=== PATIENT | male | born 1960 | race Caucasian/White ===

== ENCOUNTER 2016-07-22 11:00 | Inpatient (IN) | payer BC, OTHER ==
--- NOTE | 2016-07-22 11:24 | HP ---
SUPERVISING PHYSICIAN: Marvin Avendano MD CHIEF COMPLAINT: Persistent diarrhea and left sided abdominal pain. HISTORY OF PRESENT ILLNESS: Mr. Blair is a 55-year-old, male patient that was sent directly from the clinic for admission for persistent diarrhea having failed to respond to outpatient treatment. He was seen on Friday this past week for complaints of back pain with some nausea and some diarrhea. He notes that the diarrhea started approximately 9 days previously and had not resolved on any icko-dmq-ryhutyk treatment. He also notes he had lost approximately 9 pounds within the last 10 days. In the clinic on Friday, he was started on Cipro and Flagyl with concerns for diverticulitis with the patient having a past history of diverticulosis. Today in the clinic, he was still having a significant amount of diarrhea with some left sided lower quadrant pain, again. Laboratory studies were completed showing a mild leukocytosis with a white count of 12.1 without a notable left shift. However, he did have elevation in eosinophils. Stool studies were also done to include leukocytes that were negative. Occult blood was positive and cultures and Giardia studies pending. C. difficile toxin A and B were negative. Chemistries were within normal limits except for a mildly elevated creatinine of 1.8. Liver functions were within normal limits. Amylase and lipase were pending at time of admission. Given the patient had failed to have any significant improvement in the last 72 hours after being started on antibiotics and had over 10 days worth of continued symptoms to include diarrhea, the patient was sent for direct admission. He was admitted in stable condition to the Medical/Surgical Floor. PAST MEDICAL HISTORY: 1. Kidney stones. 2. Benign prostatic hypertrophy. 3. Type 2 diabetes mellitus on oral therapy. 4. Hypertension. 5. Chronic insomnia. 6. History of diverticulosis. PAST SURGICAL HISTORY: No major surgeries listed. HOME MEDICATIONS: 1. Metoprolol 25 mg ER 1 daily. 2. Crestor 5 mg tablet 1 daily. 3. Glucophage ER 500 mg tablet 2 tablets daily. 4. Flomax 0.4 mg twice daily. 5. Antibiotics started this past Friday including Cipro 500 mg and Flagyl 500 mg. 6. Ambien 10 mg 1 p.r.n. as needed for insomnia. 7. Aspirin. ALLERGIES: PENICILLINS. FAMILY HISTORY: Prostate cancer in father and uncle. SOCIAL HISTORY: The patient is retired from the [employer] industry, currently works as a rancher, self employed. He denies ever smoking tobacco. He does note that he drinks wine periodically. He denies any illicit drug use. He is and lives in [place]. REVIEW OF SYSTEMS: CONSTITUTIONAL: Denies any fatigue and fevers, but notes a 9 pound unintentional weight loss within the last 10 days. HEENT: Denies nasal congestion, cough, sore throat, headaches. CARDIOVASCULAR: Denies chest pain, orthopnea, or edema. RESPIRATORY: Denies recent cough, congestion. He does note some mild dyspnea with exertion. GASTROINTESTINAL: Positive as noted in history of present illness for persistent diarrhea for 10 days with a 9 pound weight loss with no report of hematochezia. He does have abdominal pain , more in the left lower quadrant. Denies any constipation. He has had some nausea and one episode of emesis. MUSCULOSKELETAL: Denies arthralgias, but does note bilateral back pain and has history of kidney stones. GENITOURINARY: Positive for gross hematuria with history of kidney stones, being followed by a urologist in [place]. NEUROLOGIC: Denies ataxia, headaches, changes in vision or syncopal episodes. PHYSICAL EXAMINATION: VITAL SIGNS: In the clinic, temperature 97.2. Blood pressure 120/72. Respirations 18. O2 saturation 98% on room air. Weight 95 kg. GENERAL: The patient appears to be in no distress. He is pleasant, alert. HEENT: Tympanic membranes clear bilaterally. Oropharynx is pink, mucous membranes are dry. There are no lesions. NECK: No jugular venous distention noted. CHEST: Lungs clear to auscultation bilaterally without any rhonchi, wheezes, or rales. CARDIOVASCULAR: Regular rate and rhythm without any appreciable murmurs, gallops, or rubs. ABDOMEN: Soft with hyperactive bowel sounds with some tenderness on palpation to the left sided both upper and lower quadrants, but no rebound tenderness. There is some mild discomfort on palpation over the epigastric region. EXTREMITIES: There is no cyanosis, clubbing or edema. NEUROLOGIC: The patient is alert and oriented times three. Cranial nerves II- XII are grossly intact. Facial features are symmetric. Extraocular movements are within normal limits. There is no nystagmus. There are no notable motor neurologic deficits. LABORATORY: Laboratory completed in the clinic. CBC showed white count slightly elevated at 12.1, hemoglobin 15.2, hematocrit 43.0, platelet count 196, 000, differential without left shift, however, eosinophils elevated at 15%. Chemistries with CMP showing sodium 142, potassium 4.4, chloride 105, CO2 22, BUN 19, creatinine 1.8, calcium 9.9. Liver functions within normal limits. Total bilirubin 0.5. Amylase and lipase were not completed. Urinalysis showed dipstick with 2+ ketones with 1+ protein and trace leukocyte esterase on dipstick. Microscopic revealed 1 to 3 WBCs, 3 to 5 RBCs with occasional epithelial, rare bacteria and trace mucus. Stool occult blood was reported as negative. Giardia antigen and O&P pending. MICROBIOLOGY: Stool leukocytes negative. Sputum culture pending. C. difficile toxin A and B negative for C. difficile antigen and negative for C. difficile toxin A and B. RADIOLOGY: CT of the abdomen with contrast per radiology interpretation noted a 4 mm calculus in the proximal third left ureter resulting in mild left sided hydronephrosis. Also of note was chronic diverticulosis without any evidence of diverticulitis. ASSESSMENT: 1. Persistent diarrhea with nausea, vomiting and left lower quadrant pain with the patient having CT evidence of diverticulosis without any evidence of diverticulitis - stool studies pending. 2. Moderate dehydration secondary to persistent diarrhea for the last 10 days and reported weight loss of 9 pounds. 3. Diverticulosis as evidenced by CT with a mild leukocytosis in patient having failed to respond to outpatient treatment plan for the last 72 hours started on Cipro and Flagyl. 4. Left sided hydronephrosis secondary to a 4 mm calculus in the proximal third of the left ureter. 5. History of hematuria secondary to renal calculi, followed by urology in Dr. [place] Esther Patel. 6. Hypertension. 7. Type 2 diabetes mellitus on oral therapy. 8. History of benign prostatic hypertrophy. 9. Insomnia. PLAN: The patient is directly admitted from the clinic having failed to respond to outpatient treatment plan for diverticulosis and persistent diarrhea with a 9 pound weight loss. The patient will be started on IV fluids, made NPO and provided Zofran for nausea and morphine as needed for pain control. Dr. Owens has been consulted for further management of the patient's clinical course. We will continue to do stool studies to include occult blood and C. difficiles for a total of 3. We will continue with antibiotic at this point with Rocephin and Flagyl and await stool culture reports. Anticipate length of stay to be 2 to 3 days. Until discharge we will continue to monitor the patient closely and treat appropriately. #[id number] [facility]
[2016-07-22] MEDS ORDERED: ONDANSETRON INJ 4 MG/2 ML VIAL IV PRN (11:46)
[2016-07-22] MEDS ORDERED: SODIUM CHLORIDE 0.9% (FLUSH) 10 ML SYG IV PRN (11:46)
[2016-07-22] MEDS ORDERED: DEXTROSE 50% 25 GM/50 ML SYG IV PRN (11:46)
[2016-07-22] MEDS ORDERED: GLUCAGON INJ 1 MG VIAL SUBCU PRN (11:46)
[2016-07-22] MEDS ORDERED: IV SET AND CAP CHANGE INJ INJ SCH (12:00)
[2016-07-22] MEDS ORDERED: metroNIDAZOLE IV PREMIX 500MG 100 ML IVPB ONE ×2 (12:21→20:10)
[2016-07-22] MEDS ORDERED: KCL 20MEQ/0.45% NS 1,000 ML IVS ONE (12:22)
[2016-07-22] MEDS: metroNIDAZOLE IV PREMIX 500MG 500 MG in PREMIX BAG 1 BAG IVPB SCH ×2 (13:48→20:30)
[2016-07-22] MEDS: KCL 20MEQ/0.45% NS 1,000 ML IVS PRN ×2 (13:48→23:54)
[2016-07-22] MEDS: INSULIN LISPRO 100 UNITS/ML PEN SUBCU SCH ×2 (13:49→18:18)
--- NOTE | 2016-07-22 14:03 | CT ---
EXAM DESCRIPTION: CT ABDOMEN PELVIS WITH IV CONTRAST CLINICAL HISTORY: Chronic Diarrhea; Leukocytosis COMPARISON: None Available TECHNIQUE: CT of the abdomen and Pelvis was performed with IV contrast. FINDINGS: There is a 4 mm calculus in the proximal 3rd of the left ureter just distal to the left UPJ resulting in mild left-sided hydroureteronephrosis. No left renal contrast excretion is identified, but the left kidney is perfused. The right kidney is unremarkable. There are a few additional punctate nonobstructing calculi in the inferior pole of the left kidney. The ureters are otherwise unremarkable. There is no bladder calculus. Colonic diverticulosis without diverticulitis. No dilated small bowel loops. There is a small to moderate size hiatal hernia. No calcified gallstone. The liver, spleen, pancreas and adrenals are unremarkable. No ascites, adenopathy or pneumoperitoneum. No suspicious bone lesion. IMPRESSION: 4 mm calculus in the proximal 3rd of the left ureter resulting in mild left-sided hydroureteronephrosis. Colonic diverticulosis without diverticulitis. Moderate size hiatal hernia.. Electronically signed by: Robert Helm DO 07/22/2016 14:01
[2016-07-22] MEDS: MORPHINE SULFATE INJ 10 MG/ML VIAL IV PRN ×2 (14:37→18:27)
[2016-07-22] MEDS ORDERED: cefTRIAXone SODIUM 1 GM VIAL ONE (14:52)
[2016-07-22] MEDS ORDERED: SODIUM CHL 0.9% 50ML MIN-BAG+ 50 ML IVPB ONE (14:52)
[2016-07-22] MEDS: cefTRIAXone SODIUM 1 GM in SODIUM CHL 0.9% 50ML MIN-BAG+ 50 ML IVPB SCH (14:59)
[2016-07-22] MEDS ORDERED: PROMETHAZINE HCL INJ 25 MG in SODIUM CHLORIDE 0.9% 50ML 50 ML IVPB ONE (17:52)
[2016-07-22] MEDS ORDERED: PROMETHAZINE HCL INJ 25 MG/ML VIAL ONE (18:12)
[2016-07-22] MEDS ORDERED: SODIUM CHLORIDE 0.9% 100ML 100 ML IVPB ONE (18:12)
--- NOTE | 2016-07-22 18:45 | CONS ---
DATE OF CONSULTATION: 07/22/16 HISTORY OF PRESENT ILLNESS: The patient is a 55 year-old male admitted with a 9 to 10 day history of diarrhea that he has not resolved with ccew-cik-[id number] measures. He also has left lower quadrant abdominal pain and back pain. He denies fever or chills. Denies blood per rectum. He has had nausea but without vomiting. He denies melenic stools. He has lost 9 pounds over the last 10 days. He was initially seen and thought to have diverticulitis on physical examination and was started on Cipro and Flagyl, but he has not improved at all. He is admitted with a white blood cell count and failure of outpatient treatment. PAST MEDICAL HISTORY: 1. Kidney stones currently on the left. 2. Benign prostatic hypertrophy. 3. Hypertension. 4. Diverticulosis. 5. Diabetes mellitus. PAST SURGICAL HISTORY: 1. Hiatal hernia repair and this has been redone laparoscopically. CURRENT MEDICATIONS: 1. Metoprolol. 2. Crestor. 3. Glucophage. 4. Flomax. 5. Cipro. 6. Flagyl. 7. Ambien. 8. Aspirin. ALLERGIES: PENICILLIN. FAMILY HISTORY: Positive for carcinoma of the prostate. SOCIAL HISTORY: The patient is retired. Works as a rancher. He has never used tobacco. He drinks moderately. Denies drug use. [place]. He is . He only drinks bottled water they cook with the [place] water. REVIEW OF SYSTEMS: Noncontributory except as in the History of Present Illness. There is no chest pain or shortness of breath. He denies periods of like problems with diarrhea. Denies constipation. Has no problems voiding. Has had gross hematuria in the past with his kidney stones. He has been seen within the last 90 days multiple times by his urologist in [place]. PHYSICAL EXAMINATION: VITAL SIGNS: He is afebrile and normotensive. GENERAL: He is awake, alert and cooperative. HEENT: Reveals the sclera to be nonicteric. Mucous membranes are moist. NECK: Without adenopathy. BACK: He has left sided CVA tenderness. CHEST: Clear bilaterally. ABDOMEN: Soft diffusely with mild tenderness in the left lower quadrant with no mass or guarding. Bowel sounds are active and positive. RECTAL: Deferred. EXTREMITIES: Without clubbing, cyanosis or edema. LABORATORY: As an outpatient at [facility] his white count today was 12,000, hemoglobin 15.2, platelet count 196,000, 57% neutrophils, 15% eosinophils. Creatinine 1.8, potassium 4.4. Liver function tests are all within normal limits. Urinalysis revealed greater than 100 red cells, 1 to 3 white cells. No leukocytes. No nitrites. Few bacteria, 1+ ketones with a specific gravity of 1.020. IMPRESSION: 1. Abdominal pain and back pain, diarrhea and mild dehydration. 2. Renal calculi on the left with hydronephrosis proximal to a stone in the mid ureter. 3. Benign prostatic hypertrophy. PLAN: Continue hydration. Repeat x-ray in the morning. Await the results of all of the stool studies certainly with that eosinophilia, must consider parasitic infestation. Continue the antibiotics until further notice. #[id number] [facility]
[2016-07-22] MEDS ORDERED: SODIUM CHLORIDE 0.9% (FLUSH) 10 ML SYG IV SCH (21:00)
--- NOTE | 2016-07-22 23:12 | PCM.CORE ---
Physician DVT/VTE - Nurse DVT Assessment & Total Each Risk Factor Represents 3 Points: Medical PT with Hx of NM, CHF, Severe infection/sepsis Each Risk Factor Represents 1 Point: Age 41-60 Each Risk Factor is 1 Point: Obesity (BMI >25) DVT Assessment Score: 5 - 5 or more Very High Risk Treatments: Early Ambulation *, Sequential Compression Device Pharmacological: Enoxaparin 40mg SQ Daily
[2016-07-23] MEDS: INSULIN LISPRO 100 UNITS/ML PEN SUBCU SCH ×4 (00:15→19:49)
[2016-07-23] MEDS ORDERED: metroNIDAZOLE IV PREMIX 500MG 100 ML IVPB ONE ×3 (02:54→20:21)
[2016-07-23] MEDS: metroNIDAZOLE IV PREMIX 500MG 500 MG in PREMIX BAG 1 BAG IVPB SCH ×3 (04:12→20:47)
--- NOTE | 2016-07-23 07:02 | RAD ---
EXAM DESCRIPTION: XR ABDOMEN 2 VIEWS SUPINE ERECT CLINICAL HISTORY: abdominal pain COMPARISON: CT performed on July 22, 2016 FINDINGS: There is no free subdiaphragmatic gas. Colonic air-fluid levels are noted. The bowel gas pattern is nonobstructive. Several tiny calcifications project over the left kidney. There is a larger slightly radiopaque structure projecting over the right upper quadrant only upright view. There is no suspicious bone lesion. IMPRESSION: Colonic air-fluid levels suggestive of diarrhea, but no pneumoperitoneum or obstruction. Left renal and ureteral calculi better seen on the patient's recent CT. Ovoid slightly radiopaque structure projecting over the right upper quadrant, nonspecific. If clinically suspicious of gallbladder disease, right upper quadrant ultrasound is recommended. Electronically signed by: Robert Helm DO 07/23/2016 07:00
[2016-07-23] MEDS ORDERED: ENOXAPARIN SODIUM 40 MG/0.4 ML SYG SUBCU ONE (08:09)
[2016-07-23] MEDS: KCL 20MEQ/0.45% NS 1,000 ML IVS PRN (10:01)
[2016-07-23] MEDS: ENOXAPARIN SODIUM 40 MG/0.4 ML SYG SUBCU SCH (10:43)
[2016-07-23] MEDS ORDERED: SODIUM CHL 0.9% 50ML MIN-BAG+ 50 ML IVPB ONE (13:29)
[2016-07-23] MEDS ORDERED: cefTRIAXone SODIUM 1 GM VIAL ONE (13:29)
[2016-07-23] MEDS: cefTRIAXone SODIUM 1 GM in SODIUM CHL 0.9% 50ML MIN-BAG+ 50 ML IVPB SCH (14:20)
[2016-07-23] MEDS: ACETAMINOPHEN 325 MG TAB PO PRN ×2 (16:19→22:33)
[2016-07-23] MEDS ORDERED: PROMETHAZINE HCL INJ 25 MG in SODIUM CHLORIDE 0.9% 50ML 50 ML IVPB ONE (22:13)
[2016-07-23] MEDS ORDERED: PROMETHAZINE HCL INJ 25 MG/ML VIAL ONE (22:25)
[2016-07-23] MEDS ORDERED: SODIUM CHLORIDE 0.9% 50ML 50 ML ONE (22:26)
[2016-07-24] MEDS: INSULIN LISPRO 100 UNITS/ML PEN SUBCU SCH ×3 (00:20→12:53)
[2016-07-24] MEDS: MORPHINE SULFATE INJ 10 MG/ML VIAL IV PRN (02:28)
[2016-07-24] MEDS ORDERED: metroNIDAZOLE IV PREMIX 500MG 100 ML IVPB ONE ×2 (04:12→08:27)
[2016-07-24] MEDS: metroNIDAZOLE IV PREMIX 500MG 500 MG in PREMIX BAG 1 BAG IVPB SCH ×2 (04:16→11:42)
[2016-07-24 04:45] VITALS: O2SAT 95
[2016-07-24] MEDS: KCL 20MEQ/0.45% NS 1,000 ML IVS PRN (08:46)
[2016-07-24] MEDS ORDERED: NON-FORMULARY MEDICATION 1 EA MIS (Rosuvastatin Calcium [Crestor] 5 MG) PO SCH (09:00)
[2016-07-24] MEDS ORDERED: ATORVASTATIN 10 MG TAB PO SCH (09:00)
[2016-07-24] MEDS ORDERED: TAMSULOSIN 0.4 MG CAP PO SCH (09:00)
--- NOTE | 2016-07-24 09:07 | PN ---
SUPERVISING PHYSICIAN: Sharri Richardson MD DATE: 07/23/16 SUBJECTIVE: The patient continues to have diarrhea. He reports that his pain in his back worsened last night acutely, but resolved without any intervention and today, he is currently pain free in his back area. He feels like he passed a stone although he did not see one in his urine. He remains afebrile. OBJECTIVE: VITAL SIGNS: Temperature 98.7. Pulse 66. Blood pressure 110/69. Respirations 18. O2 saturation 95% on room air. I&Os show positive balance of 317 with 1869 in, 1562 out. He has had several bowel movements. Weight is 94.8 kg. CHEST: Lungs clear to auscultation bilaterally. HEART: Regular rate and rhythm. ABDOMEN: Some mild tenderness in the left lower quadrant and upper quadrant. No more CVA tenderness noted. EXTREMITIES: No cyanosis, clubbing or edema. NEUROLOGIC: Alert and oriented times three. LABORATORY: White count normal at 9.0, hemoglobin 14.1, hematocrit 41.8, platelet count 169,000, differential with no left shift, but continues to show elevated eosinophils. Electrolytes today are normal with potassium 4.1, BUN 15 , creatinine 1.47, glucose 85 to 128. Liver functions within normal limits. Stool Giardia and O&P are still pending. He had second C. difficile that was negative for both C. difficile antigen and toxin A and B. Stool culture pending. RADIOLOGY: Abdominal x-ray flat and upright per radiology interpretation shows colonic air-fluids suggestive of diarrhea, but no pneumoperitoneum or obstruction. Left renal and ureteral calculi better seen on CT. There is an ovoid, slightly opaque structure projecting over the right upper quadrant. No other findings were noted. Please see final results for full details. ASSESSMENT: 1. Persistent diarrhea with some nausea, but no vomiting since admission with some left lower quadrant pain with evidence of diverticulosis without any evidence of diverticulitis with stool cultures still pending. 2. Left sided flank pain with evidence of calculus, 4 mm, with some mild left sided hydronephrosis. 3. Moderate dehydration secondary to persistent diarrhea for the last 10 days and reported weight loss of 9 pounds. 4. Diverticulosis, symptomatic, as evidenced by CT with a mild leukocytosis having responded to inpatient treatment, but having failed to respond to outpatient treatment plan for the last 72 hours prior to admission, having been started on Cipro and Flagyl. The patient is now on Rocephin and Flagyl with a GI consult with Dr. Kee pending. 5. Left sided hydronephrosis secondary to a 4 mm calculus in the proximal third of the left ureter with the patient reporting pain resolving last night, but no evidence of stone passage. 6. History of hematuria secondary to renal calculi, followed by urology in [place]. Maria Esther Patel. 7. Hypertension, stable. 8. Type 2 diabetes mellitus on oral therapy. 9. History of benign prostatic hypertrophy. 10. Insomnia. PLAN: The patient continues to have persistent nausea and persistent diarrhea, but notes his pain has lessened somewhat and he is feeling better. In regards to fluid management, rehydration, he has been started back on clear liquids and is tolerating that so far. We will continue to follow the patient in consultation with Dr. Owens and await consultation from Dr. Kee in the morning. He will be NPO tonight and we will continue to collect stools for C. difficile. He will continue on antibiotics to include Rocephin and Flagyl. We will continue to monitor the patient and treat appropriately until discharge. #[id number] [facility]
[2016-07-24 10:26] VITALS: BP 115/75; TEMP 98
[2016-07-24] MEDS: ENOXAPARIN SODIUM 40 MG/0.4 ML SYG SUBCU SCH (11:45)
--- NOTE | 2016-07-24 11:53 | CONS ---
DATE OF CONSULTATION: 07/24/16 REASON FOR CONSULTATION: Diarrhea. HISTORY OF PRESENT ILLNESS: Mr. Blair is a 55-year-old gentleman seen regarding diarrhea. This started around 10 days ago, sudden in onset. He had crampy abdominal pain, left lower quadrant discomfort. He had watery stools, 6 to 10 times a day, uncontrollable. The pain is never unbearable. No nausea or vomiting. Pnuz-itu-bwdoxtg medication failed to provide relief. Prior to the diarrhea, there was no history of any antibiotic intake, travel history, new medication. He came in mostly because of dehydration, weakness, and unable to keep up with the volume loss. So far, studies have been unremarkable. He came in with normal hemoglobin, white count around 9,000, weight increase in eosinophil, but now is up to around 12%. CT scan was pertinent for finding of a single small stone in the left ureter with mild hydronephrosis, scattered diverticulosis present. Stool studies so far have all been negative. Stool is heme negative. C. difficile is negative. Cultures are preliminarily negative, but final studies pending. Currently, he claims he is feeling much better. His bowel movements are down to twice this morning, small quantity, only a little bit clear liquid and there is no large volume diarrhea anymore. He claims to feel hungry, but tired and weak because he has not eaten much. He has a long-term history of recurrent kidney stones. He claimed that it is common for him in the past and told him nothing to worry about. He had a colonoscopy done 3 years ago for screening purposes in [place], [place]. Two polyps were removed, benign. He was advised to followup in 5 years. Incidental diverticulosis also identified. PERSONAL HISTORY: He is a nonsmoker, nondrinker. He is retired. He has had no major medical illnesses otherwise. He takes blood pressure medication only. FAMILY HISTORY: Noncontributory. PHYSICAL EXAMINATION: GENERAL: The patient is a healthy looking white male. He is in no acute distress. No pallor, no icterus. VITAL SIGNS: Afebrile. NECK: No masses. No neck vein distention. CHEST: Lungs are clear. No wheezing or rhonchi. HEART: No cardiomegaly, murmur, or gallop. ABDOMEN: Soft, scaphoid, nondistended, nontender. Liver and spleen not palpable. RECTAL: Exam not done. EXTREMITIES: Noncontributory. No sign of any skin turgor changes. NEUROLOGIC: Grossly intact. IMPRESSION: 1. Acute diarrhea of 10 day duration, most likely infectious with exact etiology unknown. This could range from Norovirus to even Campylobacter. However, Norovirus is self limiting and Campylobacter usually comes with some degree of fever. Both of them are very common in the last few months. PLAN: The patient is significantly improving. There is no objective evidence of any complicated problem or other significant clinical finding. I think we can advance his diet. Hopefully this will resolve on its own in the next 48 hours. Repeat endoscopy not indicated. He should check with his primary care physician regarding eosinophilic problem. I gave him a phone number to call me if diarrhea persists after he left the hospital. #[id number] cc: Sharri Richardson MD [facility]
[2016-07-24] MEDS ORDERED: SODIUM CHLORIDE 0.9% 10 ML VIAL INJ PRN (11:55)
--- NOTE | 2016-07-24 14:13 | DS ---
DISCHARGE DIAGNOSIS: 1. Significant nausea, vomiting and diarrhea, probable acute infectious gastroenteritis with no specific etiology determined and showing clinical improvement. 2. Acute left ureteral stone, 4 mm in size, with associated left sided hydronephrosis, showing clinical improvement. 3. Moderate dehydration requiring parenteral fluid supplementation. 4. Chronic diverticulosis, symptomatic, noted on CT scan. 5. History of hematuria, possibly secondary to the renal calculi and [place]. 6. Chronic hypertension. 7. History of diabetes mellitus, type 2, on oral therapy. 8. History of benign prostatic hypertrophy on medications. 9. Chronic insomnia. 10. Evidence of eosinophilia on laboratory studies during the hospital course with followup suggested. HISTORY OF PRESENT ILLNESS: This 55-year-old, white male was admitted to the hospital with persistent nausea, vomiting and diarrhea and back pain. It was found that he did have an acute left ureteral stone with hydronephrosis on the left which may have also contributed to hematuria grossly noted at the time of admission which showed some clearing. The patient was placed in the hospital for hydration because of significant dehydration and for specific evaluation including surgical as well as GI intervention to assist with ruling out any significant underlying pathology. LABORATORY: White count 7,400, hemoglobin 14.2. Chemistries showed sugar in the 90s fasting at discharge. Potassium 4.1, BUN 15, creatinine 1.47. Stool guaiac negative on one determination. Ovum and parasite is pending. C. difficile is negative. Fecal leukocytes are negative. Sputum culture initially was negative. RADIOLOGY: Abdominopelvic CT scan showed chronic diverticulosis without evidence radiographically of diverticulitis. 4 mm calculus was noted in the proximal third of the left ureter with resultant mild left sided hydronephrosis. Further followup is necessary. HOSPITAL COURSE: The patient was feeling much improved at the time of discharge and will have close followup with Dr. Richardson in the clinic. PLAN: The patient will continue with his usual home medications. His diet will be soft and slowly advanced with trying to minimize significant dairy at this time. Followup with Dr. Richardson in 7 days with repeat CBC to reevaluate the eosinophilia noted on his hospital stay. Drink plenty of fluids. Try probiotics from the clinic. Advance the diet steadily. Wash hands after handling chickens. Return if not improving. #[id number] [facility]
[2016-07-24] MEDS ORDERED: METOPROLOL SUCCINATE XL 25 MG TAB PO SCH (21:00)
[2016-07-25] MEDS ORDERED: metFORMIN XR 500 MG TAB.ER.24 PO SCH (21:00)
== END 2016-07-24 14:32 | disposition home or self-care (01) | DRG 392 ==
LOC: MS 11:00
PROVIDERS: ADMIT Family Medicine; ATTEND Emergency Medicine
PROC: BW21YZZ Computerized Tomography (CT Scan) of Abdomen and Pelvis using Other Contrast (ICD-10-PCS; principal; 2016-07-22)
DX: A09 Infectious gastroenteritis and colitis, unspecified (principal); N13.2 Hydronephrosis with renal and ureteral calculous obstruction; E86.0 Dehydration; I10 Essential (primary) hypertension; E11.9 Type 2 diabetes mellitus without complications; N40.0 Benign prostatic hyperplasia without lower urinary tract symptoms; K57.90 Diverticulosis of intestine, part unspecified, without perforation or abscess without bleeding; G47.00 Insomnia, unspecified; Z88.0 Allergy status to penicillin

== ENCOUNTER 2016-12-11 09:28 | Emergency (ER) | payer BC, OTHER ==
[2016-12-11 09:39] VITALS: BP 133/87; TEMP 96.9; O2SAT 97
--- NOTE | 2016-12-11 09:48 | ED.PDOC ---
History of Present Illness - General Chief Complaint: Problem Stated Complaint: hematuria Time Seen by Provider: 12/11/16 09:32 Source: patient, RN notes reviewed, Vital Signs reviewed, old records Exam Limitations: no limitations - History of Present Illness Initial Comments: Patient reports hematuria that started ~7 days ago with a small spot of blood after urinating. He has had numerous kidney stones over the past 10 years and thought another was coming on. The bleeding resolved but then yesterday it started up again worse than he has ever had. He is not having any of his typical kidney stone symptoms so he became concerned. Reports an x-ray ~4 months ago was read as no remaining kidney stones. Also, does not feel like prostatitis which he has had in the past. He is having some pelvic pressure, frequency and urgency. No fever, chills, flank pain, groin pain, nausea or vomiting. Timing/Duration: week, getting worse Quality: mild, other - pressure Onset Location: urethral Radiation: none Activites at Onset: none Prior abdominal problems: similar symptoms Sexual intercourse history: single partner Improving Factors: nothing Worsening Factors: nothing Associated Symptoms: abdominal pain, polyuria, urinary frequency Allergies/Adverse Reactions: Allergies Penicillins Adverse Reaction (Intermediate, Verified 07/22/16 15:22) Home Medications: Ambulatory Orders Aspirin [[place] Low Dose] 81 mg PO DAILY 07/22/16 Metoprolol Succinate [Metoprolol Succinate ER] 25 mg PO BEDTIME 07/22/16 Zolpidem Tartrate [Ambien] 10 mg PO BEDTIME 07/22/16 metFORMIN XR [Glucophage Xr] 2 each PO BEDTIME 07/22/16 Rosuvastatin Calcium [Crestor] 5 mg PO DAILY 12/11/16 Review of Systems - Review of Systems Constitutional: States: no symptoms reported. Denies: chills, fever, malaise EENTM: States: no symptoms reported Respiratory: States: no symptoms reported Cardiology: States: no symptoms reported Gastrointestinal/Abdominal: States: see HPI. Denies: diarrhea, nausea, vomiting Genitourinary: States: see HPI, dysuria, frequency, hematuria Musculoskeletal: States: no symptoms reported Skin: States: no symptoms reported Neurological: States: no symptoms reported Endocrine: States: no symptoms reported Hematologic/Lymphatic: States: no symptoms reported Past Medical History (General) - Patient Medical History Hx Seizures: No Hx Stroke: No Hx Asthma: No Hx of COPD: No Hx Pacemaker: No Hx Diabetes: Yes - oral med Hx MRSA: No Surgical History: appendectomy - Vaccination History Hx Tetanus, Diphtheria Vaccination: No Hx Influenza Vaccination: Yes Hx Pneumococcal Vaccination: No Immunizations Up to Date: No - Social History Hx Alcohol Use: Yes Hx Substance Use: No Hx Physical Abuse: No Hx Emotional Abuse: No Family Medical History - Family History Father Family History: Unknown Hx Family;Other: prostate Physical Exam - Physical Exam General Appearance: Alert, Comfortable, No apparent distress, Well Developed, Well Groomed, Well Hydrated, Well Nourished Neck: full range of motion, supple, normal inspection Cardiovascular/Respiratory: regular rate, rhythm, no M/R/G, no JVD, normal breath sounds, no respiratory distress Gastrointestinal/Abdominal: normal bowel sounds, soft, no organomegaly, no pulsatile mass, tenderness - Mild LLQ/suprapubic that radiates to his testicle. No guarding or rebound. No CVA tenderness. Back Exam: normal inspection, no CVA tenderness Extremity: normal range of motion, non-tender, normal inspection, no pedal edema Neurologic: alert, normal mood/affect, oriented x 3 Skin Exam: normal color, warm/dry Progress - Progress Progress: 12/11/16 10:07 Discussed symptoms, exam and lab results with patient. Suspect he has a small kidney stone and that is why it is not hurting like his past larger stones. Will defer CT scan to limit radiation exposure, patient is agreeable with plan. Urine shows no nitrates so unlikely there is a current infection but will start Cipro on a precautionary basis, patient has this at home. Advised if he does not pass a stone in 7-10 days or if new/worsening symptoms return to ER or PCP for CT scan and further workup. - Results/Orders Results/Orders: Laboratory Tests 12/11/16 09:39 Urine Color Red Urine Appearance Cloudy Urine pH 6.0 Ur Specific [place] 1.025 Urine Protein 100 H Urine Glucose (UA) Negative Urine Ketones Trace Urine Blood Large H Urine Nitrite Negative Urine Bilirubin Small H Urine Urobilinogen 1.0 Ur Leukocyte Esterase Negative Urine RBC Tntc H Urine WBC Obscured by rbc's H Ur Epithelial Cells 0 Urine Bacteria Obscured by rbc's H Departure - Departure Clinical Impression: Hematuria, gross Time of Disposition: 10:09 Disposition: Discharge to Home or Self Care Condition: Good Departure Forms: ED Discharge - Pt. Copy, Patient Portal Self Enrollment Instructions: DI for Hematuria Diet: resume usual diet - Push fluids, enough to urinate at least every 2 hours Activity: increase activity as tolerated Referrals: Dorian Richardson MD [Primary Care Provider] - 1-2 Weeks Home Medications: Ambulatory Orders Aspirin [[place] Low Dose] 81 mg PO DAILY 07/22/16 Metoprolol Succinate [Metoprolol Succinate ER] 25 mg PO BEDTIME 07/22/16 Zolpidem Tartrate [Ambien] 10 mg PO BEDTIME 07/22/16 metFORMIN XR [Glucophage Xr] 2 each PO BEDTIME 07/22/16 Rosuvastatin Calcium [Crestor] 5 mg PO DAILY 12/11/16
== END 2016-12-11 10:22 | disposition home or self-care (01) ==
LOC: ER 09:28
DX: R31.0 Gross hematuria (principal); E11.9 Type 2 diabetes mellitus without complications; Z87.442 Personal history of urinary calculi; Z88.0 Allergy status to penicillin; Z88.6 Allergy status to analgesic agent; Z79.84 Long term (current) use of oral hypoglycemic drugs

== ENCOUNTER 2017-05-28 05:46 | Day surgery (SDC) | payer BC ==
[2017-05-28] MEDS ORDERED: LACTATED RINGERS 1,000 ML ONE (05:48)
[2017-05-28 09:41] VITALS: BP 121/80; TEMP 97.3; O2SAT 96
--- NOTE | 2017-05-28 09:51 | OP ---
DATE OF PROCEDURE: 05/28/17 PREOPERATIVE DIAGNOSIS: 1. History of colonic polyps. POSTOPERATIVE DIAGNOSIS: 1. Normal colonoscopy. PROCEDURE: 1. Colonoscopy. SURGEON: Gerhard Mendoza MD ANESTHESIA: Monitored anesthesia care. ESTIMATED BLOOD LOSS: Less than 5 mL. COMPLICATIONS: No immediate complications. PROCEDURE: The patient was placed in the left lateral decubitus position. After deep sedation was achieved with monitored anesthesia care, the Olympus pediatric colonoscope was inserted through the anus into the rectum under direct visualization. The endoscope was advanced under direct visualization to the cecum with ease. The cecum was identified by the ileocecal valve, the appendiceal orifice and the terminal ileum. Photo documentation of these locations was performed. The endoscope was then progressively withdrawn and the total colonic lumen evaluated. Retroflexion was performed in the ascending colon and in the rectum. The endoscope was then withdrawn and the procedure terminated. The patient tolerated the procedure well with no immediate complications. IMPRESSION: Normal colonoscopy. RECOMMENDATIONS: Repeat colonoscopy in five years due to history of colonic polyps. Followup with primary care physician as previously scheduled. #[id number] [facility]
[2017-05-28] MEDS ORDERED: PROPOFOL 200 MG/20 ML VIAL IV ONE (10:00)
== END 2017-05-28 09:10 | disposition home or self-care (01) ==
LOC: AMB 05:46
PROVIDERS: ATTEND Internal Medicine Gastroenterology
DX: Z12.11 Encounter for screening for malignant neoplasm of colon (principal); Z86.010 Personal history of colon polyps; E11.9 Type 2 diabetes mellitus without complications; E78.5 Hyperlipidemia, unspecified; G47.00 Insomnia, unspecified; Z88.0 Allergy status to penicillin; Z79.82 Long term (current) use of aspirin; Z79.84 Long term (current) use of oral hypoglycemic drugs; Z79.899 Other long term (current) drug therapy
CPT/HCPCS: 00810; 36416; 45378; 82948; J3490; J7120

== ENCOUNTER → 2017-07-10 | Outpatient (CLI) | payer BC | END | disposition home or self-care (01) | LOC: GMAM 14:03 | PROVIDERS: ATTEND Family Medicine | DX: R97.20 Elevated prostate specific antigen [PSA] (principal) ==

== ENCOUNTER → 2017-12-08 | Outpatient (CLI) | payer BC | LOC: GMAM 10:42 | PROVIDERS: ATTEND Family Medicine | DX: R79.82 Elevated C-reactive protein (CRP) (principal) ==

== ENCOUNTER → 2018-05-01 | Outpatient (CLI) | payer BC, OTHER ==
--- NOTE | 2018-05-04 09:03 | MRI ---
EXAM DESCRIPTION: Shoulder,Right: Magnetic Resonance Imaging. CLINICAL HISTORY: RIGHT SHOULDER PAIN COMPARISON: None. TECHNIQUE: Multiplanar, high-field MRI, multiple sequences, without contrast, right shoulder. FINDINGS: Fluid in the mid fibers of the supraspinatus tendon at the insertion on the anterior greater tuberosity. This may be extending longitudinally into the tendon substance. Diffuse fluid signal along the bursal surface of the tendon which is irregular with minimal fluid in the subacromial-subdeltoid bursa. Minimal edema in the distal supraspinatus tendon on the posterior margin in the anterior confluence with the supraspinatus tendon. Small fluid on the undersurface abutting the cortical erosion of the tuberosity. Intermediate signal in the distal subscapularis tendon with possible edema. Otherwise normal marrow signal in the humeral head. No significant rotator cuff atrophy. Minimal fluid in the subcoracoid bursa. Type I lateral acromion. Minimal downsloping of the lateral acromion. Minimal effusion in the AC joint with minimal protrusion of the joint capsule inferiorly on the musculotendinous junction of the supraspinatus. Coracoacromial arch unremarkable; coracoid ligaments are intact. Minimal glenohumeral joint effusion. No osteochondral lesions. Question of fluid signal in the bicipital labral anchor and adjacent posterior aspect of the superior labrum. Intermediate signal in the inferior labrum. Long head biceps tendon within the bicipital groove. IMPRESSION: 1. Small longitudinal tear in the insertion of the right supraspinatus tendon and suspected bursal surface tendinopathy versus partial-thickness tear. Minimal fluid in the subacromial-subdeltoid bursa. 2. Degenerative signal in the right infraspinatus tendon and undersurface partial-thickness insertion tear with erosion of the posterior greater tuberosity. Tendinopathy of the distal subscapularis tendon. 3. Minimal arthrosis of the right AC joint. Minimal narrowing of the right supraspinatus tendon outlet. Minimal subcoracoid bursitis. 4. Sprain versus partial tear of the right bicipital labral anchor. Possible associated posterior-superior labral tear. Degeneration of the inferior labrum. Glenohumeral joint effusion but no osteochondral injury. Electronically signed by: Darren Garces MD 05/04/2018 9:02 AM [facility]
== END ==
LOC: MRI 10:11
PROVIDERS: ATTEND Family Medicine
DX: M75.101 Unspecified rotator cuff tear or rupture of right shoulder, not specified as traumatic (principal); S46.191A Other injury of muscle, fascia and tendon of long head of biceps, right arm, initial encounter; M12.811 Other specific arthropathies, not elsewhere classified, right shoulder

== ENCOUNTER → 2018-07-28 | Outpatient (CLI) | payer BC | LOC: GMAM 15:05 | PROVIDERS: ATTEND Family Medicine | DX: Z12.5 Encounter for screening for malignant neoplasm of prostate (principal) ==